=== PATIENT | female | born 1975 | race Caucasian/White ===

== ENCOUNTER 2017-08-12 17:13 | Emergency (ER) | payer OTHER ==
[2017-08-12 18:16] VITALS: BP 124/75
[2017-08-12] MEDS ORDERED: Acetaminophen TAB* 325 MG PO ONE (18:58)
[2017-08-12] MEDS ORDERED: Amoxicillin/Clavulanate TAB* 875 MG PO ONE (18:58)
--- NOTE | 2017-08-12 19:00 | ED ---
Throat Pain/Nasal Congestion - HPI Summary HPI Summary: 42 yr old female with the complaint of frontal sinus and maxillary sinus pressure, pain, and ear pain. Onset a couple days ago. She has also a migraine exacerbation, and has had headache, and mild light sensitivity and nausea. She takes fioricet and also imitrex at home. No fever or chills. No other complaints. - History of Current Complaint Chief Complaint: UCRespiratory Time Seen by Provider: 08/12/17 18:57 - Allergies/Home Medications Allergies/Adverse Reactions: Allergies Allergy/AdvReac Type Severity Reaction Status Date / Time MS Bee Venom [Bee Venom] Allergy Airway Verified 05/10/16 14:58 Obstruction MS Hydrocodone [From Lortab] Allergy Hives Verified 08/12/17 18:18 MS Aspirin [Aspirin] AdvReac Bleeding Verified 08/12/17 18:18 MS Ibuprofen [From Motrin IB] AdvReac See Comment Verified 08/12/17 18:18 ANT BITES Allergy Airway Uncoded 05/10/16 14:58 Obstruction PMH/Surg Hx/FS Hx/Imm Hx Endocrine/Hematology History: Denies: Hx Diabetes, Hx Anemia Cardiovascular History: Reports: Hx Hypertension Denies: Hx Pacemaker/ICD GI History: Reports: Other GI Disorders - COLITIS WELL CONTROLLED WITH PENTASA Denies: Hx Jaundice History: Denies: Hx Renal Disease Sensory History: Reports: Hx Contacts or Glasses - GLASSES Denies: Hx Hearing Aid Opthamlomology History: Reports: Hx Contacts or Glasses - GLASSES Neurological History: Reports: Hx Migraine Psychiatric History: Reports: Hx Anxiety, Hx Depression Denies: Hx Panic Disorder - Surgical History Surgery Procedure, Year, and Place: 1999 TUBAL. 2012 PARTIAL HYSTERECTOMY. 2002 LASIK BILAT. 2003 EYE MUSCLE SURGERY [facility]. 2005 R BREAST LUMPECTOMY. 2014 RIGHT TOE SURGERY. 2006 R GANGLION CYST EXC. 2010 DEVIATED SEPTUM/SINUS. 2012 SINUS SURGERY/BMT. 2012 LEFT ELBOW TENDON REPAIR. 2011 PARTIAL HYSTERECTOMY. 01/23 EAR TUBES Hx Anesthesia Reactions: No Infectious Disease History: No Infectious Disease History: Denies: Traveled Outside the [place] in Last 30 Days - Family History Known Family History: Positive: Cardiac Disease - grandparents, father - Social History Occupation: Employed Full-time Lives: With Family Alcohol Use: Rare Substance Use Type: Reports: None Smoking Status (MU): Never Smoked Tobacco Review of Systems Constitutional: Negative Positive: Other - sinus pressure, post nasal drip Positive: Headache All Other Systems Reviewed And Are Negative: Yes Physical Exam Triage Information Reviewed: Yes Vital Signs On Initial Exam: Initial Vitals Temp Pulse Resp BP Pulse Ox 97.9 F 95 16 124/75 99 08/12/17 18:09 08/12/17 18:09 08/12/17 18:09 08/12/17 18:09 08/12/17 18:09 Vital Signs Reviewed: Yes Appearance: Positive: Well-Appearing, No Pain Distress Skin: Positive: Warm, Skin Color Reflects Adequate Perfusion Head/Face: Positive: Normal Head/Face Inspection Eyes: Positive: EOMI ENT: Positive: Pharynx normal, Nasal congestion, Nasal drainage, TM red - retracted right, Sinus tenderness - bilateral maxillary and frontal. Respiratory/Lung Sounds: Positive: Clear to Auscultation, Breath Sounds Present Cardiovascular: Positive: RRR. Negative: Murmur Abdomen Description: Positive: Nontender Musculoskeletal: Positive: Strength/ROM Intact Neurological: Positive: Sensory/Motor Intact, Alert, Oriented to Person Place, Time, CN Intact II-III, Normal Gait, Speech Normal Psychiatric: Positive: Normal - [place] Coma Scale Best Eye Response: 4 - Spontaneous Best Motor Response: 6 - Obeys Commands Best Verbal Response: 5 - Oriented Coma Scale Total: 15 Diagnostics - Vital Signs Vital Signs Temp Pulse Resp BP Pulse Ox 08/12/17 18:09 97.9 F 95 16 124/75 99 - Laboratory Lab Statement: Any lab studies that have been ordered have been reviewed, and results considered in the medical decision making process. EENT Course/Dx - Course Course Of Treatment: 42 yr old with sinus infection, migraine, ear TM retraction. Rx with augmentin. DC home . FU with PMD> - Diagnoses Provider Diagnoses: Sinusitis Discharge - Discharge Plan Condition: Good Disposition: HOME Prescriptions: Amoxicillin/Clavulanate TAB* [Augmentin TAB 875*] 875 mg PO BID #20 tab Patient Education Materials: Sinusitis (ED), Migraine Headache (ED) Referrals: Marjorie Schaffer MD [Primary Care Provider] - 2 Days
== END 2017-08-12 19:12 | disposition home or self-care (01) ==
LOC: UCCORT 17:13
DX: J32.9 Chronic sinusitis, unspecified (principal); I10 Essential (primary) hypertension; K52.9 Noninfective gastroenteritis and colitis, unspecified; G43.909 Migraine, unspecified, not intractable, without status migrainosus; Z90.711 Acquired absence of uterus with remaining cervical stump; Z88.5 Allergy status to narcotic agent; Z88.6 Allergy status to analgesic agent; Z91.030 Bee allergy status
CPT/HCPCS: 99213; A9270-GY; G0463

== ENCOUNTER 2018-10-05 11:58 | Emergency (ER) | payer OTHER ==
[2018-10-05] MEDS ORDERED: Ketorolac INJ* 30 MG/ML 1 ML VIAL IV PUSH ONE (13:19)
[2018-10-05] MEDS ORDERED: Metoclopramide IV* 5 MG/ML 2 ML VIAL IV ONE (13:19)
[2018-10-05] MEDS ORDERED: NS 0.9% 1000 ML** 1,000 ML IV ONE (13:19)
[2018-10-05] MEDS ORDERED: diPHENhydraMINE IV* 50 MG/ML 1 ml VIAL (BENADRYL) IV ONE (13:19)
[2018-10-05 14:01] LABS: ABS Basophils 0.1 10^3/ul (0-0.2); ABS Eosinophils 0.1 10^3/ul (0-0.6); ABS Monocytes 0.3 10^3/ul (0-0.8); ABS Neutrophils 5.5 10^3/ul (1.5-7.7); ABS Nucleated RBC 0 10^3/ul; Hematocrit 40 % (33-41); Lymphocyte % 24.9 %; Mean Corpuscular HGB Conc 35 g/dL (31-36); Mean Corpuscular Hemoglobin 33 pg (27-31); Mean Corpuscular Volume 94 fL (80-97); Mean Platelet Volume 7.6 fL (7.4-10.4); Nucleated Red Blood Cells % 0; Platelet Count 340 10^3/uL (150-450); Red Blood Count 4.28 10^6 /uL (3.70-4.87); Red Cell Distribution Width 12 % (10.5-15)
[2018-10-05 14:04] LABS: Troponin I 0.01 ng/mL (<0.04)
[2018-10-05 14:10] LABS: Albumin/Globulin Ratio 1.7 (1-3); BUN/Creatinine Ratio 17.2 (8-20); Calcium 8.7 mg/dL (8.6-10.3); EGFR Non-African American 100.8 (>60); Globulin 2.4 g/dL (2-4); Total Bilirubin 0.5 mg/dL (0.2-1.0); Total Protein 6.4 g/dL (6.4-8.9)
[2018-10-05 16:22] VITALS: BP 160/92
--- NOTE | 2018-10-06 05:29 | ED ---
Headache - HPI Summary HPI Summary: Patient is a 43-year-old female with a history of migraines presenting to the ED with an intermittent forte history of nausea, shortness of breath, pressure to the chest and migraines. Denies any cardiac history. She doesn't were some cold symptoms, cough, congestion and nasal congestion. She states her blood pressure has been high at 154/104. She states her blood pressure usually is 130 /80. Today, she states he only complaint is L sided BRITO. - History Of Current Complaint Chief Complaint: EDHeadache Stated Complaint: HEADACHE FOR 4DAYS/HIGH BP/SOB PER PT Time Seen by Provider: 10/05/18 12:28 Hx Obtained From: Patient Onset/Duration: Gradual Onset Initially Headache Was: Initial Pain Scale(0-10)= - 5 Currently Pain Is: Current Pain Scale(0-10)= Timing: Intermittent, Lasting:, Minutes Character: Throbbing Location of Headache: Temporal Aggravating Factor: Nothing Allevating Factors: Nothing Associated Signs And Symptoms: Negative - Risk Factors SAH Risk Factors: Negative Meningitis Risk Factors: Negative SDH Risk Factors: Negative Temporal Arteritis Risk Factors: Negative - Allergies/Home Medications Allergies/Adverse Reactions: Allergies Allergy/AdvReac Type Severity Reaction Status Date / Time aspirin Allergy Bleeding Verified 10/05/18 12:04 bee venom protein (honey bee) Allergy Airway Verified 10/05/18 12:04 Obstruction hydrocodone Allergy Hives Verified 10/05/18 12:04 ibuprofen Allergy Bleeding Verified 10/05/18 12:04 ANT BITES Allergy Airway Uncoded 05/10/16 14:58 Obstruction Home Medications: Home Medications Bupropion XL* [Wellbutrin XL *] 150 mg PO DAILY 10/05/18 [History Confirmed ] Melatonin [Ra Melatonin] 10 mg PO BEDTIME 10/05/18 [History Confirmed 10/05/18] Omeprazole 40 mg PO DAILY 10/05/18 [History Confirmed 10/05/18] PMH/Surg Hx/FS Hx/Imm Hx Previously Healthy: Yes Endocrine/Hematology History: Denies: Hx Diabetes, Hx Anemia Cardiovascular History: Reports: Hx Hypertension Denies: Hx Pacemaker/ICD GI History: Reports: Other GI Disorders - COLITIS WELL CONTROLLED WITH PENTASA Denies: Hx Jaundice History: Denies: Hx Renal Disease Sensory History: Reports: Hx Contacts or Glasses - GLASSES Denies: Hx Hearing Aid Opthamlomology History: Reports: Hx Contacts or Glasses - GLASSES Neurological History: Reports: Hx Migraine Psychiatric History: Reports: Hx Anxiety, Hx Depression Denies: Hx Panic Disorder - Surgical History Surgery Procedure, Year, and Place: 1999 TUBAL. 2012 PARTIAL HYSTERECTOMY. 2001 LASIK BILAT. 2002 EYE MUSCLE SURGERY [facility]. 2004 R BREAST LUMPECTOMY. 2014 RIGHT TOE SURGERY. 2006 R GANGLION CYST EXC. 2010 DEVIATED SEPTUM/SINUS. 2011 SINUS SURGERY/BMT. 2011 LEFT ELBOW TENDON REPAIR. 2011 PARTIAL HYSTERECTOMY. 01/23 EAR TUBES Hx Anesthesia Reactions: No - Immunization History Hx Pertussis Vaccination: No Immunizations Up to Date: Yes Infectious Disease History: No Infectious Disease History: Denies: Traveled Outside the [place] in Last 30 Days - Family History Known Family History: Positive: Cardiac Disease - grandparents, father - Social History Occupation: Employed Full-time Lives: With Family Alcohol Use: Rare Hx Substance Use: No Substance Use Type: Reports: None Smoking Status (MU): Never Smoked Tobacco Review of Systems Constitutional: Negative Negative: Fever, Chills, Fatigue, Skin Diaphoresis Positive: Chest Pain - none currently, previous chest pressure Negative: Shortness Of Breath, Cough Negative: Abdominal Pain, Vomiting, Diarrhea, Nausea Negative: Arthralgia, Myalgia Negative: Rash, Bruising Positive: Headache All Other Systems Reviewed And Are Negative: Yes Physical Exam Triage Information Reviewed: Yes Vital Signs On Initial Exam: Initial Vitals Temp Pulse Resp BP Pulse Ox 98.1 F 69 16 150/92 98 10/05/18 12:00 10/05/18 12:00 10/05/18 12:00 10/05/18 12:00 10/05/18 12:00 Vital Signs Reviewed: Yes Appearance: Positive: Well-Appearing, Well-Nourished Skin: Positive: Warm, Skin Color Reflects Adequate Perfusion Head/Face: Positive: Normal Head/Face Inspection Eyes: Positive: EOMI, DYLLAN, Conjunctiva Clear Neck: Positive: Supple, No Lymphadenopathy Respiratory/Lung Sounds: Positive: Clear to Auscultation, Breath Sounds Present Cardiovascular: Positive: RRR, Pulses are Symmetrical in both Upper and Lower Extremities. Negative: Leg Edema Left, Leg Edema Right Musculoskeletal: Positive: Normal, Strength/ROM Intact Neurological: Positive: Speech Normal Psychiatric: Positive: Normal, Affect/Mood Appropriate AVPU Assessment: Alert Diagnostics - Vital Signs Vital Signs Temp Pulse Resp BP Pulse Ox 10/05/18 16:21 98.3 F 67 17 160/92 97 10/05/18 16:00 65 21 97 10/05/18 15:06 58 26 180/80 95 10/05/18 15:00 65 22 97 10/05/18 14:59 69 20 190/88 96 10/05/18 14:29 68 14 154/90 94 10/05/18 14:00 57 19 98 10/05/18 13:58 67 25 160/92 94 10/05/18 13:30 64 21 138/83 97 10/05/18 13:00 61 14 97 10/05/18 12:58 62 20 138/74 97 10/05/18 12:28 63 149/90 98 10/05/18 12:00 98.1 F 69 16 150/92 98 - Laboratory Lab Results: Lab Results 10/05/18 10/05/18 Range/Units 13:28 13:28 WBC 8.0 (3.5-10.8) 10^3/uL RBC 4.28 (3.70-4.87) 10^6 /uL Hgb 14.0 (12.0-16.0) g/dL Hct 40 (33-41) % MCV 94 (80-97) fL MCH 33 H (27-31) pg MCHC 35 (31-36) g/dL RDW 12 (10.5-15) % Plt Count 340 (150-450) 10^3/uL MPV 7.6 (7.4-10.4) fL Neut % (Auto) 68.9 % Lymph % (Auto) 24.9 % [place] % (Auto) 4.2 % Eos % (Auto) 1.0 % Baso % (Auto) 1.0 % Absolute Neuts (auto) 5.5 (1.5-7.7) 10^3/ul Absolute Lymphs (auto) 2.0 (1.0-4.8) 10^3/ul Absolute Monos (auto) 0.3 (0-0.8) 10^3/ul Absolute Eos (auto) 0.1 (0-0.6) 10^3/ul Absolute Basos (auto) 0.1 (0-0.2) 10^3/ul Absolute Nucleated RBC 0 10^3/ul Nucleated RBC % 0 Sodium 138 (135-145) mmol/L Potassium 4.0 (3.5-5.0) mmol/L Chloride 105 (101-111) mmol/L Carbon Dioxide 26 (22-32) mmol/L Anion Gap 7 (2-11) mmol/L BUN 11 (6-24) mg/dL Creatinine 0.64 (0.51-0.95) mg/dL Est GFR ( Amer) 122.0 (>60) Est GFR (Non-Af Amer) 100.8 (>60) BUN/Creatinine Ratio 17.2 (8-20) Glucose 96 (70-100) mg/dL Calcium 8.7 (8.6-10.3) mg/dL Total Bilirubin 0.50 (0.2-1.0) mg/dL AST 17 (13-39) U/L ALT 21 (7-52) U/L Alkaline Phosphatase 84 (34-104) U/L Troponin I 0.01 (<0.04) ng/mL Total Protein 6.4 (6.4-8.9) g/dL Albumin 4.0 (3.2-5.2) g/dL Globulin 2.4 (2-4) g/dL Albumin/Globulin Ratio 1.7 (1-3) Result Diagrams: 10/05/18 13:28 10/05/18 13:28 Lab Statement: Any lab studies that have been ordered have been reviewed, and results considered in the medical decision making process. Headache Course/Dx - Course Course Of Treatment: During this was treatment, the patient is evaluated for intermittent chest pressure which she does not currently have on arrival as well as left-sided headache. She does have a history of migraines, but states this is different. She is given 1 L normal saline, Toradol, Reglan, Benadryl. Labs obtained including a troponin of 0.01. All labs are WNL. After approximately 2 hours, patient states she feels improved and offers no complaints at this time. She is asymptomatic. I have given her a prescription for Reglan for associated nausea with her migraines. She understands to take Tylenol and Benadryl as well for any worsening symptoms. Patient does see Dr. Lopes and is currently been on sumatriptan and Fioricet for her headaches, however states this is not helping. I've advised her to follow back up with Dr. 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 - Diagnoses Provider Diagnoses: Migraine, Chest pressure Discharge - Sign-Out/Discharge Documenting (check all that apply): Patient Departure Patient Received Moderate/Deep Sedation with Procedure: No - Discharge Plan Condition: Stable Disposition: HOME Prescriptions: Metoclopramide TAB* [Reglan TAB*] 10 mg PO Q6H PRN #10 tab PRN Reason: Nausea Patient Education Materials: Acute Headache (ED) Referrals: Marjorie Schaffer MD [Primary Care Provider] - Additional Instructions: Take tylenol 650mg three times daily with reglan and benadryl for relief of breakthrough headaches not well controlled with your migraine headache medications - Billing Disposition and Condition Condition: STABLE Disposition: Home
== END 2018-10-05 16:21 | disposition home or self-care (01) ==
LOC: ED 11:58
DX: G43.909 Migraine, unspecified, not intractable, without status migrainosus (principal); R07.89 Other chest pain; R00.1 Bradycardia, unspecified; I10 Essential (primary) hypertension; K52.9 Noninfective gastroenteritis and colitis, unspecified; F32.9 Major depressive disorder, single episode, unspecified; Z88.5 Allergy status to narcotic agent; Z88.6 Allergy status to analgesic agent; Z91.030 Bee allergy status; Z82.49 Family history of ischemic heart disease and other diseases of the circulatory system
CPT/HCPCS: 36415; 80053; 84484; 85025; 93005; 96361; 96374; 96375; 99283; J1200; J1885; J2765

== ENCOUNTER 2020-01-17 09:24 | Inpatient (IN) ==
[~2020-01-17 09:24] MED LIST: Buffered Lidocaine 1% SYRIN 1 ml INTRADERM ONE; Lactated Ringers 1000 ml BAG 1,000 ML IV SCH
[2020-01-17] MEDS ORDERED: ceFAZolin 2 GM PREMIX in ORs 2 GM/50 ML BAG ONE (09:47)
[2020-01-17] MEDS ORDERED: Heparin 5000 UNITS/ML VIAL(*) 1 ml vial ONE (09:47)
[2020-01-17] MEDS ORDERED: ceFAZolin 1 GM ADVAN(*) 1 GM ADDV.VIAL IVPB ONE (09:48)
[2020-01-17] MEDS ORDERED: Sugammadex 500 MG/5 ML 5 ml VIAL IV PUSH ONE (09:58)
[2020-01-17] MEDS ORDERED: Sevoflurane BOTTLE ONE (09:58)
[2020-01-17] MEDS ORDERED: Ondansetron 4 mg VIAL 2 MG/ML 2 ml VIAL ONE ×2 (09:58→13:50)
[2020-01-17] MEDS ORDERED: Midazolam 2 mg/2 ml VIAL 1 mg/ml 2 ml VIAL (2 mg) ONE (09:58)
[2020-01-17] MEDS ORDERED: Succinylcholine 200 mg VIAL 20 mg/ml 10 ml VIAL (200 mg) ONE (09:58)
[2020-01-17] MEDS ORDERED: Dexamethasone IV 4 MG/ML VIAL 1 ml VIAL ONE (09:58)
[2020-01-17] MEDS ORDERED: fentaNYL 100 mcg/2 ml 50 MCG/ML VIAL ONE (09:58)
[2020-01-17] MEDS ORDERED: Acetaminophen IV 1 GM/100ML 100 ML ONE (09:58)
[2020-01-17] MEDS ORDERED: Lidocaine 2% PF 5 ML VIAL ONE (09:58)
[2020-01-17] MEDS ORDERED: Glycopyrrolate IV 0.2 MG/ML 1 ML VIAL ONE (09:58)
[2020-01-17] MEDS ORDERED: Bupivacaine 0.25% EPI 200,000 30 ML SDV ONE (10:41)
[2020-01-17] MEDS ORDERED: Methylene Blue 0.5 % 50 MG/10 ML AMP IV ONE (10:42)
[2020-01-17] MEDS ORDERED: Rocuronium 50 mg VIAL 10 mg/ml 5 ml VIAL (50 mg) ONE (11:38)
[2020-01-17] MEDS ORDERED: diPHENhydraMINE IV 50 MG/ML 1 ml VIAL (BENADRYL) IV PRN (11:45)
[2020-01-17] MEDS ORDERED: fentaNYL 100 mcg/2 ml 50 MCG/ML VIAL IV PRN (11:45)
[2020-01-17] MEDS ORDERED: Levalbuterol 0.63MG/3ML NEB UNIT OF USE INH PRN (11:45)
[2020-01-17] MEDS ORDERED: Prochlorperazine 5 mg/ml 2 ml VIAL (10 mg) IV PRN ×2 (11:45→16:18)
[2020-01-17] MEDS ORDERED: Naloxone 0.4 mg VIAL 0.4 mg/ml 1 ml VIAL IV PRN (11:45)
[2020-01-17] MEDS ORDERED: HYDROcodone/ACET. 7.5/325 LIQ 15 ML UDC PO PRN (13:11)
[2020-01-17] MEDS ORDERED: HYDROmorphone 1 MG/1 ML SYRINGE ONE (13:50)
[2020-01-17] MEDS: HYDROmorphone 1 MG/1 ML SYRINGE IV PRN ×5 (13:50→14:11)
[2020-01-17] MEDS: Ondansetron 4 mg VIAL 2 MG/ML 2 ml VIAL IV PRN ×2 (13:50→21:41)
[2020-01-17] MEDS: Lactated Ringers 1000 ml BAG 1,000 ML IV SCH ×2 (15:45→21:24)
[2020-01-17] MEDS ORDERED: Metoprolol Tartrate 5 mg VIAL 5 ml VIAL (1 mg/ml) IV PRN (16:15)
[2020-01-17] MEDS: HYDROmorphone 0.5 MG/0.5 ML SYRINGE IV SLOW PU PRN ×2 (17:11→21:40)
[2020-01-17] MEDS: Heparin 5000 UNITS/ML VIAL(*) 1 ml vial SUBCUT SCH (17:44)
[2020-01-18] MEDS: HYDROmorphone 0.5 MG/0.5 ML SYRINGE IV SLOW PU PRN ×3 (00:40→21:29)
[2020-01-18] MEDS: Heparin 5000 UNITS/ML VIAL(*) 1 ml vial SUBCUT SCH ×3 (03:32→18:00)
[2020-01-18] MEDS: Lactated Ringers 1000 ml BAG 1,000 ML IV SCH ×2 (04:14→12:00)
[2020-01-18] MEDS ORDERED: Albuterol HFA INHALER 8 gm MDI INH PRN (10:16)
[2020-01-18] MEDS: Fluticasone NASAL SPRAY 50MCG 16 gm SPRAY BTL INTRANASAL SCH ×2 (12:01→21:11)
[2020-01-18] MEDS ORDERED: NS 0.9% 1000 ml BAG 1,000 ML IV SCH (16:00)
[2020-01-18] MEDS: D5W 1/2 NS KCl 20 meq 1000 ml 1,000 ML IV SCH (16:43)
[2020-01-18] MEDS: oxyCODONE/Acetamin 5/325 mg TAB PO PRN (16:44)
[2020-01-18] MEDS: Mometasone/Formoter 100/5 MDI INH SCH (19:59)
[2020-01-19] MEDS: D5W 1/2 NS KCl 20 meq 1000 ml 1,000 ML IV SCH (00:42)
[2020-01-19] MEDS: Heparin 5000 UNITS/ML VIAL(*) 1 ml vial SUBCUT SCH ×2 (02:06→08:51)
[2020-01-19 07:19] VITALS: BP 146/79
[2020-01-19] MEDS: Fluticasone NASAL SPRAY 50MCG 16 gm SPRAY BTL INTRANASAL SCH (08:49)
[2020-01-19] MEDS: Mometasone/Formoter 100/5 MDI INH SCH (08:49)
[2020-01-19] MEDS: oxyCODONE/Acetamin 5/325 mg TAB PO PRN (09:11)
== END 2020-01-19 10:04 | disposition home or self-care (01) | DRG 403 ==
LOC: AA 09:24 → SSU 14:41
PROVIDERS: ADMIT Surgery; ATTEND Surgery